=== PATIENT | female | born 1995 | race American Indian/Alaskan Native ===

== ENCOUNTER 2018-07-06 04:56 | Inpatient (IN) | payer MEDICAID ==
[2018-07-06 06:15] VITALS: BMI 29.0
[2018-07-06] MEDS ORDERED: Lactated Ringer's 1,000 ML IV ONE (07:19)
[2018-07-06] MEDS ORDERED: Oxytocin 30 units/LR 500ML 30 UNITS/500 ML BAG IV ONE (07:23)
[2018-07-06] MEDS ORDERED: Lactated Ringer's 1,000 ML IV SCH (07:30)
[2018-07-06 08:09] LABS: BASO % 0.1 % (0.0-2.0); EOS % 0.5 % (0.0-4.0); HEMOGLOBIN 11.1 g/dL (12.0-16.0); LYMPH # 2.2 K/uL (1.0-4.3); LYMPH % 29.6 % (20.0-40.0); MEAN CELL VOLUME 81.3 fl (81.0-99.0); MEAN CORPUSCULAR HEMOGLOBIN 26.6 pg (27.0-31.0); MEAN CORPUSCULAR HGB CONC 32.7 g/dL (33.0-37.0); MEAN PLATELET VOLUME 8.8 fl (7.2-11.7); MONO # 0.5 K/uL (0.0-0.8); MONO % 7.4 % (0.0-10.0); NEUT # 4.5 K/uL (1.8-7.0); NEUT % 62.4 % (50.0-75.0); RBC 4.16 Mil/uL (3.80-5.20); RED CELL DISTRIBUTION WIDTH 13.3 % (11.5-14.5); WHITE BLOOD COUNT 7.3 K/uL (4.8-10.8)
[2018-07-06] MEDS ORDERED: Benzocaine/Menthol SPRAY TOP PRN ×2 (09:04→19:30)
--- NOTE | 2018-07-06 09:43 | OBDS ---
DELIVERY PERSONNEL Delivery Doctor: Praveen Supervisor [employer] Division: Jj Dumont MCollazo Anesthesiologist: n/a Resident: Dr Nicole Reza MATERNAL INFORMATION Delivery Anesthesia: None Medications in Delivery: Pitocin Estimated Blood Loss (ml): 250 Placenta Cultured: No Maternal Complications: Precipitous Labor (<3hrs) Provider Comments: Patient presented in latent labor but quickly progressed to active labor. ROM was minutes before delivery. There was light meconium after AROM, probation officer was present and assessed infant after infant was placed on mom's chest immediately following delivery. Delayed cord clamping p erformed. with no complications and minimal blood loss. The vagina was explored with no lacerat ions or trauma. Mom and baby in stable condition, will be transfered to post . Dominga Reza MD OB Fellow LABOR SUMMARY EDC: 07/05/2018 00:00 No. Babies in Womb: 1 Attempted: No Labor Anesthesia: None LABOR INFORMATION Reason for Induction: Not Applicable Onset of Labor: 07/06/2018 07:00 Complete Dilatation: 07/06/2018 07:42 Oxytocin: N/A Group B Beta Strep: Done, Result Unknown Antibiotics # of Doses: n/a Antibiotics Time of Last Dose: n/a Steroids Given: None Reason Steroids Not Administered: Not Applicable MEMBRANES Membranes Rupture Method: Artificial Rupture of Membranes: 07/06/2018 07:51 Length of Rupture (hrs): 0.17 Amniotic Fluid Color: Light Meconium Amniotic Fluid Amount: Moderate STAGES OF LABOR Stage 1 hrs: 0 Stage 1 min: 42 Stage 2 hrs: 0 Stage 2 min: 19 Stage 3 hrs: 0 Stage 3 min: 5 Total Time in Labor hrs: 1 Total Time in Labor min: 6 VAGINAL DELIVERY Episiotomy: None Laceration Extension: N/A Laceration Type: None Laceration Repair: Not Applicable Initial Vag Sponge Count: 5 Final Vag Sponge Count: 5 Initial Vag Sharps Count: 0 Final Vag Sharps Count: 0 Sponge Count Correct: Yes Sharps Count Correct: Yes Count Comment: count correct BABY A INFORMATION Infant Delivery Date/Time: 07/06/2018 08:01 Method of Delivery: Vaginal Born in Route : No : N/A Forceps: N/A Vacuum Extraction: N/A Shoulder Dystocia : No SHOULDER DYSTOCIA BABY A Infant Delivery Date/Time: 07/06/2018 08:01 PRESENTATION/POSITION BABY A Presentation: Cephalic PLACENTA INFORMATION BABY A Placenta Delivery Time : 07/06/2018 08:06 Placenta Method of Delivery: Spontaneous Placenta Status: Delivered SCORES BABY A Heart Rate 1 min: >100 bpm Resp Effort 1 min: Good Cry Reflex Irritability 1 min: Cough or Sneeze or Pulls Away Muscle Tone 1 min: Active Motion Color 1 min: Body [place], Extremities Blue Resuscitation Effort 1 min: Tactile Stimulation SCORE 1 MIN: 9 Heart Rate 5 min: >100 bpm Resp Effort 5 min: Good Cry Reflex Irritability 5 min: Cough or Sneeze or Pulls Away Muscle Tone 5 min: Active Motion Color 5 min: Body [place], Extremities Blue Resuscitation Effort 5 min: N/A SCORE 5 MIN: 9 INFORMATION BABY A Gestational Age at Delivery: 40.1 Gestational Status: Term Infant Outcome : Liveborn Infant Condition : Stable Sex: Female IDENTIFICATION/MEDS BABY A ID Band Location: Left Leg; Left Arm WEIGHT/LENGTH BABY A Birthweight (gms): 3490 Weight (lb): 7 Infant Weight (oz): 11 CORD INFORMATION BABY A No. Cord Vessels: 3 Cord Blood Taken: Yes Suction: None ASSESSMENT BABY A Complications: None Physical Findings at Delivery: Within Normal Limits Infant Respirations: Appears Normal Transferred To: Remains with Mother
--- NOTE | 2018-07-06 09:45 | OBADHP ---
Datetime: 07/06/2018 06:11 Admit Comment, IP Provider: HPI: 22 y/o F with EGA 40.1 weeks, who presents with c/o uterine contractions and pelvic pain since yesterday at 8AM, she states that the contractions has increased in intensity and now are Q5 min, lasts 1 min and the pain is 10/10 in intensity when she has contract ions, patient denies vaginal bleeding, LOF, recent sexual activity. Patient reports frequent mo vements. Patient denies RIVAS, chest pain, blurry vision, SOB, N/V. Patient states her last visit to her PMD was 3 weeks ago, patient medical record unavailable at this time. ROS: Unremarkable, except as per HPI. OBGYN: , Patient's second baby had trisomy 18 and after , Patient reports all pre vious deliveries were . care provider: Dr Gan Ph.: [phone]. record unavailable at this time, PM D office closed. PMH: Asthma FMH: Mother HTN Social Hx: Denies Tobacco/ETOH/Rec drug use MEDS: PNV SurgHx: None Allergies: Peanuts LABS: Patient reports all labs during has been WNL, but MR not available at this time. Assessment/plan 22 y/o , with term EGA 40.1, CLEMENTE 07/05/18, who presents with Uterine contractions Q5 min, Cervical dilat 1cm, EFfcement 50%. Impression: the patient is a multiparous in early labor -Admit to L_D for observation and eval -Monitor Maternal VS and FHR tracing -Hydration IVF with LR -CBC w diff, Type and screen -Call to obtain records and labs Case discussed with attending Dr. Praveen Staples MD PGY1 FHR - Baseline A Provider: 145 Comments, ACOG Physical Exam: GEN: NAD HEENT: Normocephalic, EOMI RESP: CTA b/l CV: RRR, no murmurs noted ABD: Gravid, soft LE: No edema Vital Signs Provider: Reviewed; Within Normal Limits IP Chief Complaint: Uterine contractions NICHD Variability Prov Fetus A: Moderate 6-25bpm NICHD Accel Fetus A IP Provider: [id number] FHR Category Provider Fetus A: Category I Dilatation, Provider: 1 Effacement, Provider: 50 Station, Provider: -3 EGA AdmitDate IP: 40.1 IP Adm Impression: Term, intrauterine IP Admit Plan: Admit to unit; Initiate labor protocol Datetime: 07/06/2018 05:39 Presentation-Admit: Vertex
[2018-07-06] MEDS ORDERED: Oxycodone/Acetaminophen 5/325 mg Tab PO PRN (11:19)
[2018-07-06 19:40] LABS: OPIATES, UR NEGATIVE (NEGATIVE)
[2018-07-06 19:42] LABS: BARBITURATES, UR NEGATIVE (NEGATIVE); BENZODIAZEPINES, UR NEGATIVE (NEGATIVE); PHENCYCLIDINE, UR NEGATIVE (NEGATIVE)
[2018-07-07] MEDS: Oxycodone/Acetaminophen 5/325 mg Tab PO PRN ×3 (01:31→20:25)
[2018-07-07 07:55] LABS: BASO % 0.1 % (0.0-2.0); EOS # 0.1 K/uL (0.0-0.7); LYMPH # 2.7 K/uL (1.0-4.3); LYMPH % 33.3 % (20.0-40.0); MEAN CELL VOLUME 80.9 fl (81.0-99.0); MEAN CORPUSCULAR HEMOGLOBIN 26.9 pg (27.0-31.0); MEAN CORPUSCULAR HGB CONC 33.3 g/dL (33.0-37.0); MEAN PLATELET VOLUME 8.7 fl (7.2-11.7); MONO # 0.5 K/uL (0.0-0.8); MONO % 6.8 % (0.0-10.0); NEUT # 4.7 K/uL (1.8-7.0); NEUT % 58.8 % (50.0-75.0); RBC 3.72 Mil/uL (3.80-5.20); RED CELL DISTRIBUTION WIDTH 13.4 % (11.5-14.5)
--- NOTE | 2018-07-07 11:18 | OBPPN ---
Datetime: 07/07/2018 07:16 PP Pain Prov: Within normal limits PP Nausea Prov: Denies PP BM Prov: No PP Impression Prov: Normal progression PP Plan Prov: Continue present management PP Progress Note Prov: Patient seen and examined this AM, Patient is ambulating w/o difficulties, to lerating oral food w/o N/V, voiding well w/o blood in urine, passing gas per rectum but no BM yet, lo andrew is less than menses in volume. Patient denies abdominal pain, RIVAS, fever, chills, blurry vision, cough, chest pain, palpitations, SOB, or calf pain. Patient reports she is baby and alt ernating with bottle-feeding. O: VS WNL Physical exam GEN: NAD HEENT: Normocephalic, EOMI. RESP: CTA b/l CV: RRR, No murmurs noted on auscultation. ABD: Soft, No DT, Uterus firm about 1 cm below umbilicus LE: No edema, Jose's negative and no calf tenderness. A/P 22 y/o , s/p , with appropriate recovery course going into her PPD1 -continue current post- management -VS monitoring -Motrin 600 mg PO Q6h prn pain -Encourage and ambulation -D/C planning for tomorrow Gisele Staples MD PGY1 OB Attending covering 8am - 10am... On rounds I saw this patient. Agree with note NADIA H/H 08/22 0 Vital Signs Provider PP: Reviewed; Within Normal Limits
[2018-07-08] MEDS: Oxycodone/Acetaminophen 5/325 mg Tab PO PRN ×2 (00:33→08:13)
--- NOTE | 2018-07-08 07:41 | OBPPN ---
Datetime: 07/08/2018 07:37 PP Pain Prov: Within normal limits PP Abdomen/Uterus Prov: Normal PP Lochia Prov: Normal PP Extremities Prov: Normal PP Impression Prov: Normal progression PP Plan Prov: Discharge PP Progress Note Prov: PPD 2 s/p , doing well, breast and bottle feeding Discharge home today Vital Signs Provider PP: Reviewed; Within Normal Limits
[2018-07-08 19:47] VITALS: BP 120/56; PULSE 63; RESP 20; TEMP 98; O2SAT 100
== END 2018-07-08 13:30 | disposition home or self-care (01) | DRG 373 ==
LOC: H.EROB2 04:56 → H.L&D 07:19 → H.OB/GYN 10:16
PROVIDERS: ADMIT Obstetrics & Gynecology; ATTEND Obstetrics & Gynecology
PROC: 10E0XZZ Delivery of Products of Conception, External Approach (ICD-10-PCS; principal; 2018-07-06)
PROC: 4A1HXCZ Monitoring of Products of Conception, Cardiac Rate, External Approach (ICD-10-PCS; 2018-07-06)
DX: O62.3 Precipitate labor (principal); O77.0 Labor and delivery complicated by meconium in amniotic fluid; O99.52 Diseases of the respiratory system complicating childbirth; J45.909 Unspecified asthma, uncomplicated; Z3A.40 40 weeks gestation of pregnancy; Z37.0 Single live birth